=== PATIENT | female | born 1935 | race Caucasian/White ===

== ENCOUNTER 2019-09-23 22:47 | IRF | payer MEDICARE, SELFPAY ==
[2019-09-23 22:50] VITALS: BP 123/54; PULSE 62; RESP 20; TEMP 36.1; O2SAT 97; BMI 37.6
--- NOTE | 2019-09-23 22:59 | ADMGEN ---
This patient, Christian Mcghee, was admitted to [facility] Room 221-01 at 2250. Patient/family oriented to hospital policies and general routines including ID bracelet, bed and alarms, visiting hours, pain management, procedures, bathroom and other care routines, personal items, smoking policy, room service/diet, and visiting hours. Valuables list has been completed. Information on how to activate the Rapid Response Team has been discussed. Patient/Family are encouraged to report perceived risks to care and to ask questions if they do not understand what they are told or what they should do.
[2019-09-24 05:24] LABS: Basophils Absolute Auto 0.1 K/mm3 (0.0-0.1); Basophils Percent Auto 0.7 % (0.2-1.2); Eosinophils Absolute Auto 0.4 K/mm3 (0-0.3); Eosinophils Percent Auto 5.8 % (0-4.4); Hematocrit 39.6 % (37.0-47.0); Hemoglobin 12.6 g/dL (12.0-15.0); Immature Granulocyte Absolute 0.02 K/mm3 (0.00-0.031); Immature Granulocyte Percent A 0.3 % (0-0.5); Lymphocytes Absolute Auto 1.47 K/mm3 (0.9-3.2); Lymphocytes Percent Auto 20.2 % (18.3-44.2); Mean Corpuscular HGB Conc 31.8 g/dl (32-36); Mean Platelet Volume 9.6 fl (7.4-10.4); Monocytes Absolute Auto 0.8 K/mm3 (0.1-0.6); Monocytes Percent Auto 11.2 % (2.6-8.5); Neutrophils Absolute Auto 4.5 K/mm3 (1.3-6.7); Neutrophils Percent Auto 61.8 % (45.5-73.1); Platelet Count Result 254 k/mm3 (150-375); Red Blood Count 4.35 M/mm3 (4.2-5.4); Red Cell Distribution Width 14.9 % (11.5-14.5); White Blood Count 7.3 K/mm3 (4.5-10.0)
[2019-09-24 05:34] LABS: Blood Urea Nitrogen 10 mg/dL (7-17); Calcium 9.1 mg/dL (8.4-10.2); Carbon Dioxide 29 mmol/L (22-30); Chloride 103 mmol/L (98-107); Estimated Glomerular Filt Rate > 60; Glucose 100 mg/dL (65-105); Potassium 3.4 mmol/L (3.4-5.0); Sodium 137 mmol/L (137-145)
[2019-09-24 06:00] VITALS: BP 129/60; PULSE 72; RESP 18; TEMP 36.6; O2SAT 98
--- NOTE | 2019-09-24 09:38 | PCOTNOTE ---
Initiated OT evaluation, but unable to complete entirely as patient requires extended amount of time to complete self-care tasks. Will complete further this afternoon.
[2019-09-24] MEDS: ENOXAPARIN 40 MG/0.4 ML SYRINGE SUB-Q (09:45)
[2019-09-24] MEDS: ASPIRIN 81 MG ENTERIC TABLET PO (09:46)
[2019-09-24] MEDS: FAMOTIDINE 20 MG TABLET PO (09:46)
[2019-09-24] MEDS: CLOPIDOGREL BISULFATE 75 MG TABLET PO (09:46)
[2019-09-24] MEDS: LOSARTAN POTASSIUM 100 MG TABLET PO (09:46)
[2019-09-24] MEDS: AMLODIPINE BESYLATE 2.5 MG TABLET PO (09:46)
[2019-09-24 09:47] VITALS: PULSE 72
[2019-09-24] MEDS: METOPROLOL TARTRATE 25 MG TABLET PO ×2 (09:47→17:55)
[2019-09-24] MEDS: TOLNAFTATE 1% POWDER 45 GM BTL 1 APPLIC TOPICAL ×2 (09:47→17:55)
[2019-09-24 10:10] VITALS: BMI 37.6
--- NOTE | 2019-09-24 10:30 | WPDREHABHP ---
H&P: HPI History of Present Illness Chief complaint: CVA Narrative: Christian Mcghee is a 83 year old female HISTORY OF PRESENT ILLNESS: The patient's primary rehab impairment category is 0 1/stroke The etiologic diagnosis is acute infarct in the right ramírez radiata extending into the right putamen I saw this patient [id number] on September 24, 2019 at 10:00 a.m. The patient is a 83-year-old right-handed white woman with a past medical history of stroke, hyperlipidemia, chronic kidney disease, and hypertension who presented to [facility] on September 17, 2019 via EMS from [facility] complaining of left-sided weakness. The patient reported that the symptoms of weakness started 2 days prior to presentation. She noted that she is having trouble getting around and is unable to bear weight on the left leg. She also repeated falling 1 day prior to that with no loss of consciousness. Patient was seen in the emergency department [facility] on September 15, 2019 after a fall and was evaluated. There was no head injury or loss of consciousness. The patient was discharged on treated with antibiotics for a urinary tract infection. This visit CT of the head showed no evidence of an acute intracranial process. The laboratory daughter showed CK of 1445 and urinalysis was abnormal. She was admitted and Neurology was consulted. Carotid ultrasound showed no high-grade stenosis. Echocardiogram with an ejection fraction of 65 to 70% with no thrombosis or vegetation she was continued on aspirin Plavix and pravastatin. Brain MRI showed an acute infarct in the right ramírez radiata extending into the right putamen. She was started on ceftriaxone IV for her urinary tract infection and completed 6 days course of antibiotic therapy. She is continued on her antihypertensive for blood pressure control. She did pass a barium swallow study and is on mechanical soft low sodium diet with thin liquids. Physical examination continues to reveal left-sided hemiparesis impaired balance and decreased gross motor control she is awake alert will be treated time place and person and quite motivated to get better the patient is discharged to us on Lovenox for DVT prophylaxis. The patient has not traveled outside the [place] or had contact with someone who is ill that has traveled outside the use in the past 21 days. The patient has not traveled to an area of the [place] that is experiencing known transmission of the Coronavirus and has not had close personal contact with anyone that has. The patient does not have a fever. The patient does not have any lower respiratory or even upper respiratory symptoms. Therapy was initiated at the acute care facility and the patient transferred to us from [facility] on September 23, 2019 on FALLS OR SURGERIES: The patient has had no major surgeries in the 100 days prior to admission. They had falls in the past year. They had falls with injury in the past year. PAST MEDICAL HISTORY: chronic kidney disease stage 3, hypertension, hyperlipidemia, previous history of stroke. The present stroke superimposed on the previous history of stroke PAST SURGICAL HISTORY: cholecystectomy hysterectomy brain aneurysm repair. SOCIAL HISTORY: The patient lives in independent living at [facility]. She was independent prior with no assistive device. She was previously doing balance therapy with OS of therapy services on was able to get out of a chair without pushing on the arms of the chair. Patient's daughter reported that the patient is very active. There our service available should she need them upon discharge. The patient daughter has already been in contact with administration at [facility] and they were be setting up things when the no what she will need at the time of discharge from the acute rehab. The patient fell just prior to admission. No major surgeries in the past 100 days no
[2019-09-24 14:00] VITALS: BP 142/67; PULSE 66; RESP 17; TEMP 36.3; O2SAT 99
[2019-09-24 17:55] VITALS: PULSE 66
[2019-09-24] MEDS: ATORVASTATIN 40 MG TABLET PO (20:26)
[2019-09-24] MEDS: MELATONIN 3 MG TABLET PO (20:27)
[2019-09-24 22:00] VITALS: BP 140/66; PULSE 76; RESP 18; TEMP 36.8; O2SAT 96
[2019-09-25 06:00] VITALS: BP 128/47; PULSE 67; RESP 18; TEMP 37.1; O2SAT 98
[2019-09-25 08:00] VITALS: PULSE 64; RESP 18
[2019-09-25] MEDS: ENOXAPARIN 40 MG/0.4 ML SYRINGE SUB-Q (10:59)
[2019-09-25] MEDS: AMLODIPINE BESYLATE 2.5 MG TABLET PO (10:59)
[2019-09-25 11:00] VITALS: PULSE 70
[2019-09-25] MEDS: METOPROLOL TARTRATE 25 MG TABLET PO ×2 (11:00→18:00)
[2019-09-25] MEDS: MECLIZINE HCL 25 MG TABLET PO (11:00)
[2019-09-25] MEDS: ASPIRIN 81 MG ENTERIC TABLET PO (11:00)
[2019-09-25] MEDS: CLOPIDOGREL BISULFATE 75 MG TABLET PO (11:00)
[2019-09-25] MEDS: LOSARTAN POTASSIUM 100 MG TABLET PO (11:01)
[2019-09-25] MEDS: FAMOTIDINE 20 MG TABLET PO (11:01)
[2019-09-25] MEDS: TOLNAFTATE 1% POWDER 45 GM BTL 1 APPLIC TOPICAL ×2 (11:01→18:00)
--- NOTE | 2019-09-25 11:34 | RPD ---
INDIVIDUALIZED PLAN OF CARE FOR Christian Mcghee Brief Synthesis of Pre-Admission Screen, Post-Admission Evaluation and Therapy Evaluations: The patient presents to rehab with an acute infarct in the right ramírez radiata extending into the right putamen. Comorbidities include Left-sided weakness, hypertension, dyslipidemia, urinary tract infection, acute cystitis, traumatic rhabdomyolysis, acute left knee pain, impaired mobility, and hypocalcemia. The complexity of the patient's medical management, nursing, and therapy needs require an inpatient rehab hospital stay with a physician-led interdisciplinary team approach. The patient?s needs will be best met in an intensive program vs. at a lower level of care. The patient requires physician services for neurology services, medical oversight, and coordination of care. Emotional needs will be monitored as depression is a common sequelae of stroke. The patient needs physician monitoring and treatment of hypertension, urinary tract infection, monitoring for adverse reactions to new medications, monitoring of infection, left-sided hemiparesis, impaired balance, and decreased gross motor control and pain control. The patient requires nursing services for frequent neuro checks, anticoagulation therapy, medication management and education, pressure relief and skin care management, monitoring of labs, bowel and bladder training, and fall/safety precautions. Deficits include:ADLs, Balance, Endurance, Family Training/Education, Mobility, Pain Management, ROM, Safety, Strength, and Transfers. [employer] Architect/Case Management for: Discharge Planning and Patient/Family Counseling Physical Therapy: 5 days per week for 90 minutes. Treatments may include: Therapeutic Exercise, Gait Training, Neuromuscular Re-education, Transfer Training, Community Reintegration, Bed Mobility, Patient/Family Education, Wheelchair Mobility Group Therapy/Concurrent Therapy Rationales: -Improve attention span during functional activities in a distracted environment. -Enhance problem solving and/or adequate judgment skills during functional activities in a distracted environment. -Promote increased safety awareness in a distracted environment to reduce fall risk with functional tasks, transfers, and ambulation to allow a more safe, self-sufficient return to the home environment. -Improve dynamic balance skills to promote safety and independence with functional activities in a distracted environment for maximum gain. Occupational Therapy: 5 days per week for 90 minutes. Treatments may include: Therapeutic Exercise, Therapeutic Activity, Cognitive Training, Self-Care Transfer Training, Community Reintegration, Home Management, Patient/Family Education, Wheelchair Mobility Training, Energy Conservation Training Group Therapy/Concurrent Therapy Rationales: -Allow therapist to observe and teach generalization and carry-over of skills learned in individual therapy. -Enhance problem solving and sequencing skills during therapeutic activities in a distracted environment. -Promote increased safety awareness in a realistic setting to reduce fall risk with functional tasks due to visual and verbal distractions. -Increase functional level with ADLs, ADL transfers and use of adaptive equipment through therapeutic activities with others while promoting safety to allow a more safe, self-sufficient return home. Medical Prognosis: Good Anticipated Length of Stay: 10 days Rehab Goals: Eating Goal: 06-Independent Oral Hygiene Goal: 06-Independent Toileting Hygiene Goal: 04-Supervision or Touching Assistance Shower/Bathe Self Goal: 04-Supervision or Touching Assistance Upper Body Dressing Goal: 04-Supervision or Touching Assistance Lower Body Dressing Goal: 04-Supervision or Touching Assistance Putting On/Taking Off Footwear Goal: 04-Supervision or Touching Assistance Rolling Left and Right Goal: 06-Independent Sit to Lying Goal: 06-Independent Lying to Sitting on Side
[2019-09-25 14:00] VITALS: BP 138/51; PULSE 63; RESP 19; TEMP 37; O2SAT 96
--- NOTE | 2019-09-25 15:20 | WPDNEURORHBP ---
Subjective Date/time seen: 09/25/19 15:20 Interval history: this 83-year-old woman is here after having had stroke with right cerebral hemisphere with left-sided moderately severe hemiparesis she is doing well denies any headache nausea vomiting chest pain shortness of breath fever chills or sore throat Review of Systems Review of Systems: All systems reviewed & are unremarkable except as noted in HPI and below Functional Status Ambulation Ability Ability to Ambulate 10 Feet: Moderate Assistance X 1 Ambulation Assistive Devices: Walker, Wheeled Transfers Ability Ability to Transfer In/Out of Chair: Minimum Assistance X 1 Exam Const: General: comfortable and no acute distress HENMT: General nose exam: Normal nares present Mouth: Yes moist mucous membranes Eyes: General: appearance normal, both eyes and all related structures Neck: Neck: supple and no JVD Resp: Effort & Inspection: normal respiratory effort Auscultation: clear to auscultation bilaterally Cardio: Rate: regular rate Rhythm: regular rhythm GI: GI Palp: Yes Soft to palpation Auscultation: normal bowel sounds Skin: General skin exam: normal color and no rashes or lesions noted Neuro: Other: the patient is awake alert well oriented follows commands not any distress the deficit on the left side is stable is too early to say how much is going to improve Extrem: General: normal to inspection Psych: Mental Status: mental status grossly normal Objective Data Vital Signs Vital Signs: Vital Signs - 24 hr 09/24/19 17:55 09/24/19 22:00 09/25/19 06:00 Temperature 36.8 C 37.1 C Pulse Rate 66 76 67 Respiratory Rate 18 18 Blood Pressure 140/66 128/47 L Pulse Oximetry 96 98 09/25/19 11:00 Temperature Pulse Rate 70 Respiratory Rate Blood Pressure Pulse Oximetry Intake/Output Intake/Output: Intake & Output 09/22/19 09/23/19 09/24/19 09/25/19 23:59 23:59 23:59 23:59 Intake Total 840 480 Balance 840 480 Meds/Results Medications: Active Medications Generic Name Dose Route Start Last Admin Trade Name Freq PRN Reason Stop Dose Admin Acetaminophen 650 mg 09/24/19 04:08 Tylenol Tablet PO Q6H PRN Pain (Scale Score 1-3) Amlodipine Besylate 2.5 mg 09/24/19 09:00 09/25/19 10:59 Norvasc PO 2.5 mg DAILY DAO Administration Aspirin 81 mg 09/24/19 09:00 09/25/19 11:00 Aspirin Ec PO 81 mg DAILY DAO Administration Atorvastatin Calcium 40 mg 09/24/19 21:00 09/24/19 20:26 Lipitor PO 40 mg HS DAO Administration Clopidogrel Bisulfate 75 mg 09/24/19 09:00 09/25/19 11:00 Plavix PO 75 mg DAILY DAO Administration Enoxaparin Sodium 40 mg 09/24/19 09:00 09/25/19 10:59 Lovenox SUB-Q 40 mg DAILY DAO Administration Famotidine 20 mg 09/24/19 09:00 09/25/19 11:01 Pepcid PO 20 mg DAILY DAO Administration Hydrocortisone 1 applic 09/24/19 09:00 09/25/19 11:01 Proctocream-Hc 2.5% TOPICAL 1 applic BID DAO Administration Losartan Potassium 100 mg 09/24/19 09:00 09/25/19 11:01 Cozaar PO 100 mg DAILY DAO Administration Meclizine HCl 25 mg 09/24/19 04:08 09/25/19 11:00 Antivert PO 25 mg TID PRN Administration Dizziness Or Vertigo Melatonin 3 mg 09/24/19 21:00 09/24/19 20:27 Melatonin PO 3 mg HS DAO Administration Metoprolol Tartrate 25 mg 09/24/19 09:00 09/25/19 11:00 Lopressor PO 25 mg BID DAO Administration Ondansetron HCl 4 mg 09/24/19 04:08 Zofran Odt PO Q6H PRN Nausea And Vomiting Tolnaftate 1 applic 09/24/19 09:00 09/25/19 11:01 Tolnaftate 1% Powder TOPICAL 1 applic BID DAO Administration Progress Note: A&P Assessment and Plan (1) Hypertension: Code(s): I10 - Essential (primary) hypertension Status: Acute (2) Chronic kidney disease, stage 3: Code(s): N18.3 - Chronic kidney disease, stage 3 (moderate) Status: Acute (3) Left he
[2019-09-25 18:00] VITALS: PULSE 63
[2019-09-25] MEDS: MELATONIN 3 MG TABLET PO (20:08)
[2019-09-25] MEDS: ATORVASTATIN 40 MG TABLET PO (20:08)
[2019-09-25 22:00] VITALS: BP 131/93; PULSE 66; RESP 20; TEMP 36.5; O2SAT 95
[2019-09-26 06:00] VITALS: BP 148/47; PULSE 61; RESP 20; TEMP 37.3; O2SAT 98
[2019-09-26] MEDS: AMLODIPINE BESYLATE 2.5 MG TABLET PO (09:36)
[2019-09-26 09:37] VITALS: PULSE 61
[2019-09-26] MEDS: TOLNAFTATE 1% POWDER 45 GM BTL 1 APPLIC TOPICAL ×2 (09:37→17:58)
[2019-09-26] MEDS: LOSARTAN POTASSIUM 100 MG TABLET PO (09:37)
[2019-09-26] MEDS: ENOXAPARIN 40 MG/0.4 ML SYRINGE SUB-Q (09:37)
[2019-09-26] MEDS: CLOPIDOGREL BISULFATE 75 MG TABLET PO (09:37)
[2019-09-26] MEDS: METOPROLOL TARTRATE 25 MG TABLET PO ×2 (09:37→17:58)
[2019-09-26] MEDS: ASPIRIN 81 MG ENTERIC TABLET PO (09:37)
[2019-09-26] MEDS: FAMOTIDINE 20 MG TABLET PO (09:37)
--- NOTE | 2019-09-26 11:54 | WPDNEURORHBP ---
Subjective Date/time seen: Left /23/20 11:54 Review of Systems Review of Systems: All systems reviewed & are unremarkable except as noted in HPI and below Functional Status Ambulation Ability Ability to Ambulate 10 Feet: Minimum Assistance X 1 Ambulation Assistive Devices: Walker, Wheeled Transfers Ability Ability to Transfer In/Out of Chair: Minimum Assistance X 1 Exam Const: General: comfortable and no acute distress HENMT: Head: normal to inspection General nose exam: No nasal discharge present Mouth: Yes Normal oral and palatal mucosa present Eyes: General: appearance normal, both eyes and all related structures Neck: Neck: full ROM Resp: Effort & Inspection: normal respiratory effort Auscultation: clear to auscultation bilaterally Cardio: Rate: regular rate Rhythm: regular rhythm GI: Auscultation: normal bowel sounds Skin: General skin exam: no rashes or lesions noted Neuro: General: patient oriented x3 Cognition (Neuro): normal cognition Motor exam (neuro): Abnormal motor strength present (left hemiparesis) Extrem: General: normal to inspection Psych: Appearance: grossly normal Objective Data Vital Signs Vital Signs: Vital Signs - 24 hr 09/25/19 14:00 09/25/19 18:00 09/25/19 22:00 Temperature 37.0 C 36.5 C Pulse Rate 63 63 66 Respiratory Rate 19 20 Blood Pressure 138/51 L 131/93 H Pulse Oximetry 96 95 09/26/19 06:00 09/26/19 09:37 Temperature 37.3 C Pulse Rate 61 61 Respiratory Rate 20 Blood Pressure 148/47 H Pulse Oximetry 98 Intake/Output Intake/Output: Intake & Output 09/23/19 09/24/19 09/25/19 09/26/19 23:59 23:59 23:59 23:59 Intake Total 840 720 240 Balance 840 720 240 Meds/Results Medications: Active Medications Generic Name Dose Route Start Last Admin Trade Name Freq PRN Reason Stop Dose Admin Acetaminophen 650 mg 09/24/19 04:08 Tylenol Tablet PO Q6H PRN Pain (Scale Score 1-3) Amlodipine Besylate 2.5 mg 09/24/19 09:00 09/26/19 09:36 Norvasc PO 2.5 mg DAILY DAO Administration Aspirin 81 mg 09/24/19 09:00 09/26/19 09:37 Aspirin Ec PO 81 mg DAILY DAO Administration Atorvastatin Calcium 40 mg 09/24/19 21:00 09/25/19 20:08 Lipitor PO 40 mg HS DAO Administration Clopidogrel Bisulfate 75 mg 09/24/19 09:00 09/26/19 09:37 Plavix PO 75 mg DAILY DAO Administration Enoxaparin Sodium 40 mg 09/24/19 09:00 09/26/19 09:37 Lovenox SUB-Q 40 mg DAILY DAO Administration Famotidine 20 mg 09/24/19 09:00 09/26/19 09:37 Pepcid PO 20 mg DAILY DAO Administration Hydrocortisone 1 applic 09/24/19 09:00 09/26/19 09:37 Proctocream-Hc 2.5% TOPICAL 1 applic BID DAO Administration Losartan Potassium 100 mg 09/24/19 09:00 09/26/19 09:37 Cozaar PO 100 mg DAILY DAO Administration Meclizine HCl 25 mg 09/24/19 04:08 09/25/19 11:00 Antivert PO 25 mg TID PRN Administration Dizziness Or Vertigo Melatonin 3 mg 09/24/19 21:00 09/25/19 20:08 Melatonin PO 3 mg HS DAO Administration Metoprolol Tartrate 25 mg 09/24/19 09:00 09/26/19 09:37 Lopressor PO 25 mg BID DAO Administration Ondansetron HCl 4 mg 09/24/19 04:08 Zofran Odt PO Q6H PRN Nausea And Vomiting Tolnaftate 1 applic 09/24/19 09:00 09/26/19 09:37 Tolnaftate 1% Powder TOPICAL 1 applic BID DAO Administration Progress Note: A&P Assessment and Plan (1) Hypertension: Code(s): I10 - Essential (primary) hypertension Status: Acute (2) Chronic kidney disease, stage 3: Code(s): N18.3 - Chronic kidney disease, stage 3 (moderate) Status: Acute (3) Left hemiparesis: Code(s): G81.94 - Hemiplegia, unspecified affecting left nondominant side Status: Acute (4) Right-sided lacunar stroke: Code(s): I63.81 - Other cerebral infarction due to occlusion or stenosis of small artery Status:
[2019-09-26 14:00] VITALS: BP 141/58; PULSE 64; RESP 16; TEMP 36.6; O2SAT 98
[2019-09-26 17:58] VITALS: PULSE 64
[2019-09-26] MEDS: ATORVASTATIN 40 MG TABLET PO (20:14)
[2019-09-26] MEDS: MELATONIN 3 MG TABLET PO (20:14)
[2019-09-26 21:29] VITALS: BP 151/62; PULSE 65; RESP 18; TEMP 36.3; O2SAT 97
[2019-09-27 06:00] VITALS: BP 117/51; PULSE 64; RESP 18; TEMP 36.6; O2SAT 98
[2019-09-27 08:00] VITALS: PULSE 64; RESP 18; O2SAT 98
[2019-09-27] MEDS: FAMOTIDINE 20 MG TABLET PO (09:34)
[2019-09-27] MEDS: ASPIRIN 81 MG ENTERIC TABLET PO (09:34)
[2019-09-27] MEDS: ENOXAPARIN 40 MG/0.4 ML SYRINGE SUB-Q (09:34)
[2019-09-27 09:35] VITALS: PULSE 64
[2019-09-27] MEDS: AMLODIPINE BESYLATE 2.5 MG TABLET PO (09:35)
[2019-09-27] MEDS: METOPROLOL TARTRATE 25 MG TABLET PO ×2 (09:35→17:12)
[2019-09-27] MEDS: CLOPIDOGREL BISULFATE 75 MG TABLET PO (09:35)
[2019-09-27] MEDS: LOSARTAN POTASSIUM 100 MG TABLET PO (09:35)
[2019-09-27] MEDS: TOLNAFTATE 1% POWDER 45 GM BTL 1 APPLIC TOPICAL (09:36)
[2019-09-27 14:00] VITALS: BP 139/58; PULSE 61; RESP 16; TEMP 36.5; O2SAT 97
--- NOTE | 2019-09-27 15:31 | PC.NURSE ---
Patient keeps moving around in room in her chair. Chair alarm in place. I have told patient numerous times today to SCOOT BACK in her wheelchair. Patient likes to sit close to the edge of the chair. Will continue to monitor. Call light within reach.
[2019-09-27 17:12] VITALS: PULSE 61
[2019-09-27] MEDS: MELATONIN 3 MG TABLET PO (20:27)
[2019-09-27] MEDS: ATORVASTATIN 40 MG TABLET PO (20:27)
[2019-09-27 21:24] VITALS: BP 147/71; PULSE 64; RESP 20; TEMP 36.4; O2SAT 97
[2019-09-28] MEDS: ACETAMINOPHEN 325 MG TABLET 650 MG PO (03:51)
[2019-09-28 06:00] VITALS: BP 146/63; PULSE 63; RESP 20; TEMP 36.2; O2SAT 94
[2019-09-28 08:57] VITALS: PULSE 63
[2019-09-28] MEDS: AMLODIPINE BESYLATE 2.5 MG TABLET PO (08:57)
[2019-09-28] MEDS: METOPROLOL TARTRATE 25 MG TABLET PO ×2 (08:57→18:13)
[2019-09-28] MEDS: ENOXAPARIN 40 MG/0.4 ML SYRINGE SUB-Q (08:57)
[2019-09-28] MEDS: LOSARTAN POTASSIUM 100 MG TABLET PO (08:57)
[2019-09-28] MEDS: CLOPIDOGREL BISULFATE 75 MG TABLET PO (08:57)
[2019-09-28] MEDS: ASPIRIN 81 MG ENTERIC TABLET PO (08:57)
[2019-09-28] MEDS: FAMOTIDINE 20 MG TABLET PO (08:57)
[2019-09-28] MEDS: TOLNAFTATE 1% POWDER 45 GM BTL 1 APPLIC TOPICAL ×2 (08:58→18:13)
[2019-09-28 14:00] VITALS: BP 152/67; PULSE 64; RESP 16; TEMP 36.3; O2SAT 97
--- NOTE | 2019-09-28 15:54 | WPDNEURORHBP ---
Subjective Date/time seen: S/p Left hemiparesis with right putamen andcorona radiata infarct and chronic renal disease and [id number]/20 15:54 Review of Systems Review of Systems: All systems reviewed & are unremarkable except as noted in HPI and below Functional Status Ambulation Ability Ability to Ambulate 10 Feet: Minimum Assistance X 1 Ability to Ambulate 50 Feet With 2 Turns: Minimum Assistance X 1 Ambulation Assistive Devices: Walker, Wheeled Transfers Ability Ability to Transfer In/Out of Chair: Minimum Assistance X 1 Exam Const: General: cooperative, healthy appearing, comfortable, no acute distress and alert HENMT: Head: normal to inspection Eyes: General: appearance normal, both eyes and all related structures Neck: Neck: full ROM and no lymphadenopathy Thyroid: thyroid normal Carotids: normal carotid upstroke Resp: Effort & Inspection: normal respiratory effort Auscultation: clear to auscultation bilaterally Cardio: Rate: regular rate Rhythm: regular rhythm GI: Auscultation: normal bowel sounds Skin: General skin exam: no rashes or lesions noted Neuro: General: patient oriented x3, moves all extremities and no meningeal signs Cranial nerves: Yes Equal, round and reactive pupils present, Yes Bilaterally intact EOM present, Yes Nystagmus not present, Yes Midline tongue present, Yes Ability to bilaterally rotate head present and Yes Ability to bilaterally elevate shoulders present Cognition (Neuro): normal cognition Speech: normal speech Motor exam (neuro): Abnormal motor strength present (left hemiparesis) Deep tendon reflexes (DTR's): Right triceps reflex intensity grade: 1+, Left triceps reflex intensity grade: 2+, Rt Biceps (C5, C6): 1+, Left biceps reflex intensity grade: 2+, Right brachioradialis reflex intensity grade: 1+, Left brachioradialis reflex intensity grade: 2+, Right patellar reflex intensity grade: 1+, Left patellar reflex intensity grade: 2+, Right ankle reflex intensity grade: 1+ and Left ankle reflex intensity grade: 2+ Plantar Reflex Responses: downgoing: right and upgoing (positive Babinski): left Extrem: General: normal to inspection Psych: Appearance: grossly normal Objective Data Vital Signs Vital Signs: Vital Signs - 24 hr 09/27/19 17:12 09/27/19 21:24 09/28/19 06:00 Temperature 36.4 C L 36.2 C L Pulse Rate 61 64 63 Respiratory Rate 20 20 Blood Pressure 147/71 H 146/63 H Pulse Oximetry 97 94 09/28/19 08:57 09/28/19 14:00 Temperature 36.3 C L Pulse Rate 63 64 Respiratory Rate 16 Blood Pressure 152/67 H Pulse Oximetry 97 Intake/Output Intake/Output: Intake & Output 09/25/19 09/26/19 09/27/19 09/28/19 23:59 23:59 23:59 23:59 Intake Total 720 640 720 420 Balance 720 640 720 420 Meds/Results Medications: Active Medications Generic Name Dose Route Start Last Admin Trade Name Freq PRN Reason Stop Dose Admin Acetaminophen 650 mg 09/24/19 04:08 09/28/19 03:51 Tylenol Tablet PO 650 mg Q6H PRN Administration Pain (Scale Score 1-3) Amlodipine Besylate 2.5 mg 09/24/19 09:00 09/28/19 08:57 Norvasc PO 2.5 mg DAILY DAO Administration Aspirin 81 mg 09/24/19 09:00 09/28/19 08:57 Aspirin Ec PO 81 mg DAILY DAO Administration Atorvastatin Calcium 40 mg 09/24/19 21:00 09/27/19 20:27 Lipitor PO 40 mg HS DAO Administration Clopidogrel Bisulfate 75 mg 09/24/19 09:00 09/28/19 08:57 Plavix PO 75 mg DAILY DAO Administration Enoxaparin Sodium 40 mg 09/24/19 09:00 09/28/19 08:57 Lovenox SUB-Q 40 mg DAILY DAO Administration Famotidine 20 mg 09/24/19 09:00 09/28/19 08:57 Pepcid PO 20 mg DAILY DAO Administration Hydrocortisone 1 applic 09/24/19 09:00 09/28/19 08:57 Proctocream-Hc 2.5% TOPICAL 1 applic BID DAO Administration Losartan Potassium 100 mg 09/24/19 09:00 09/28/19 08:57 Cozaar PO 100 mg DAILY DAO Administration Meclizine HCl 25 mg
[2019-09-28 18:13] VITALS: PULSE 64
[2019-09-28] MEDS: ATORVASTATIN 40 MG TABLET PO (20:55)
[2019-09-28] MEDS: MELATONIN 3 MG TABLET 6 MG PO (20:56)
[2019-09-28 22:00] VITALS: BP 126/44; PULSE 67; RESP 18; TEMP 36.7; O2SAT 99
[2019-09-29 06:00] VITALS: BP 125/47; PULSE 79; RESP 18; TEMP 36.7; O2SAT 97
[2019-09-29] MEDS: ENOXAPARIN 40 MG/0.4 ML SYRINGE SUB-Q (10:04)
[2019-09-29] MEDS: CLOPIDOGREL BISULFATE 75 MG TABLET PO (10:05)
[2019-09-29] MEDS: AMLODIPINE BESYLATE 2.5 MG TABLET PO (10:05)
[2019-09-29] MEDS: FAMOTIDINE 20 MG TABLET PO (10:05)
[2019-09-29] MEDS: ASPIRIN 81 MG ENTERIC TABLET PO (10:05)
[2019-09-29 10:06] VITALS: PULSE 79
[2019-09-29] MEDS: METOPROLOL TARTRATE 25 MG TABLET PO ×2 (10:06→17:37)
[2019-09-29] MEDS: LOSARTAN POTASSIUM 100 MG TABLET PO (10:06)
[2019-09-29] MEDS: TOLNAFTATE 1% POWDER 45 GM BTL 1 APPLIC TOPICAL ×2 (10:06→17:37)
--- NOTE | 2019-09-29 12:05 | PCDIET ---
Nutrition Follow-Up Complete: No nutrition diagnosis at this time. Nutrition Goal: Patient to consume 75% of meals or greater. Goal not met. Average intake from 09/25/19 has been 65% of meals. Patient agreeable to try [employer]rive Ice Cream (270kcal, 9g protein) which is being recommended twice daily. Diet was just upgraded to soft and bite size, heart healthy, which patient is pleased about. Last recorded weight is 84.5 kg. Recommend obtaining new weight. Bowel Motility: Last documented BM on 09/25/19. Labs Reviewed: No new labs available. Meds Noted: Pepcid Additional Notes: No documented skin breakdown. Will continue to monitor with same goals. Nutrition Monitoring and Evaluation: Follow up every 5 days.
--- NOTE | 2019-09-29 13:23 | WPDNEURORHBP ---
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 however she is doing fairly well her insomnia is an issue and she says that she has been taking melatonin at home 8 milligram we will increase that otherwise she denies any headache nausea vomiting chest pain or shortness of breath the nursing mentions about the poor appetite and her diet issues which we will address accordingly and the dietitian will be talking with her Review of Systems Review of Systems: All systems reviewed & are unremarkable except as noted in HPI and below Functional Status Ambulation Ability Ability to Ambulate 10 Feet: Minimum Assistance X 1 Ability to Ambulate 50 Feet With 2 Turns: Minimum Assistance X 1 Ambulation Assistive Devices: Walker, Wheeled Transfers Ability Ability to Transfer In/Out of Chair: Minimum Assistance X 1 Exam Const: General: comfortable and no acute distress HENMT: General nose exam: Normal nares present Mouth: Yes moist mucous membranes Eyes: General: appearance normal, both eyes and all related structures Neck: Neck: supple and no JVD Resp: Effort & Inspection: normal respiratory effort Auscultation: clear to auscultation bilaterally Cardio: Rate: regular rate Rhythm: regular rhythm GI: GI Palp: Yes Soft to palpation Auscultation: normal bowel sounds Skin: General skin exam: normal color and no rashes or lesions noted Neuro: Other: patient is awake and alert well oriented has a left-sided hemiparesis which is moderately severe but she still trying to walk up to 40 feet overall is to be picture is improved Extrem: General: normal to inspection Psych: Mental Status: mental status grossly normal Objective Data Vital Signs Vital Signs: Vital Signs - 24 hr 09/28/19 14:00 09/28/19 18:13 09/28/19 22:00 Temperature 36.3 C L 36.7 C Pulse Rate 64 64 67 Respiratory Rate 16 18 Blood Pressure 152/67 H 126/44 L Pulse Oximetry 97 99 09/29/19 06:00 09/29/19 10:06 Temperature 36.7 C Pulse Rate 79 79 Respiratory Rate 18 Blood Pressure 125/47 L Pulse Oximetry 97 Intake/Output Intake/Output: Intake & Output 09/26/19 09/27/19 09/28/19 09/29/19 23:59 23:59 23:59 23:59 Intake Total 640 720 660 240 Balance 640 720 660 240 Meds/Results Medications: Active Medications Generic Name Dose Route Start Last Admin Trade Name Freq PRN Reason Stop Dose Admin Acetaminophen 650 mg 09/24/19 04:08 09/28/19 03:51 Tylenol Tablet PO 650 mg Q6H PRN Administration Pain (Scale Score 1-3) Amlodipine Besylate 2.5 mg 09/24/19 09:00 09/29/19 10:05 Norvasc PO 2.5 mg DAILY DAO Administration Aspirin 81 mg 09/24/19 09:00 09/29/19 10:05 Aspirin Ec PO 81 mg DAILY DAO Administration Atorvastatin Calcium 40 mg 09/24/19 21:00 09/28/19 20:55 Lipitor PO 40 mg HS DAO Administration Clopidogrel Bisulfate 75 mg 09/24/19 09:00 09/29/19 10:05 Plavix PO 75 mg DAILY DAO Administration Enoxaparin Sodium 40 mg 09/24/19 09:00 09/29/19 10:04 Lovenox SUB-Q 40 mg DAILY DAO Administration Famotidine 20 mg 09/24/19 09:00 09/29/19 10:05 Pepcid PO 20 mg DAILY DAO Administration Hydrocortisone 1 applic 09/24/19 09:00 09/29/19 10:05 Proctocream-Hc 2.5% TOPICAL 1 applic BID DAO Administration Losartan Potassium 100 mg 09/24/19 09:00 09/29/19 10:06 Cozaar PO 100 mg DAILY DAO Administration Meclizine HCl 25 mg 09/24/19 04:08 09/25/19 11:00 Antivert PO 25 mg TID PRN Administration Dizziness Or Vertigo Melatonin 3 mg 09/29/19 08:50 Melatonin PO HS DAO Melatonin 5 mg 09/29/19 21:00 Melatonin PO HS DAO Metoprolol Tartrate 25 mg 09/24/19 09:00 09/29/19 10:06 Lopressor PO 25 mg BID DAO Administration Ondansetron HCl 4 mg 09/24/19 04:08 Zofran Odt PO Q6H
[2019-09-29 14:00] VITALS: BP 133/50; PULSE 63; RESP 18; TEMP 35.8; O2SAT 97
[2019-09-29 17:37] VITALS: PULSE 63
[2019-09-29] MEDS: MELATONIN 3 MG TABLET PO (20:40)
[2019-09-29] MEDS: ATORVASTATIN 40 MG TABLET PO (20:40)
[2019-09-29] MEDS: MELATONIN 5 MG TABLET PO (20:41)
[2019-09-29 21:59] VITALS: BP 134/60; PULSE 66; RESP 16; TEMP 36.7; O2SAT 99
[2019-09-30 06:00] VITALS: BP 140/50; PULSE 66; RESP 16; TEMP 36; O2SAT 93
--- NOTE | 2019-09-30 07:24 | PCPTNOTE ---
Christian Mcghee was evaluated for a wheeled walker on 09/30/2019 by this physical therapist. The wheeled walker will resolve patient's mobility limitations and will be used for ADL's within the home. The patient can safely use the wheeled walker. ?The wheeled walker will resolve the patient?s mobility deficits, including impaired strength, impaired balance, and impaired functional activity tolerance. Marcia Baker, PT, DPT
[2019-09-30 08:00] VITALS: PULSE 68; RESP 18; O2SAT 100
--- NOTE | 2019-09-30 09:06 | PCPTNOTE ---
Rajwinder Scott PTA completed an inpatient rehab wheelchair evaluation on Christian Mcghee on 09/30/2019. The patient is unable to safely and independently ambulate household distances due to their current impairments. Their diagnosis is CVA and their impairments include decreased strength, decreased endurance, decreased range of motion, decreased balance and lower extremity weakness. Christian's weight bearing status is weight-bearing as tolerated on the bilateral lower legs. The patient demonstrates significant functional mobility limitations that impair their ability to participate in mobility-related activities of daily living (MRADLs), including toileting, feeding, dressing, grooming, and bathing in the customary locations in the home. These limitations cannot be sufficiently resolved by the use of an appropriately fitted cane or walker. It is recommended that the patient utilize a wheelchair for functional mobility within the home in order to facilitate optimal safety, independence and participation in all MRADL's and adequately access their home environment on a regular basis. The patient's home provides adequate access between rooms, maneuvering space, and surfaces to accommodate the recommended wheelchair. The use of a wheelchair for functional mobility is strongly recommended and the patient is receptive to using the wheelchair. The use of this wheelchair will significantly improve the patient's ability to participate in MRADLS and the patient will use it on a regular basis in the home. This will facilitate optimal safety, independence, and participation. The patient has demonstrated sufficient physical and mental capabilities needed to safely propel a manual wheelchair that is provided in the home during a typical day. Recommended Wheelchair Frame: standard Recommended Wheelchair Size: 18x18 Recommended Wheelchair Cushion:standard Wheelchair Leg Recommendations: bilateral elevating leg rests - Elevating legrests are recommended because the patient has significant edema of the lower extremities that requires an elevating legrest. - Anti-tippers are recommended due to patient demonstrating increased risk for falls. They would benefit from anti-tippers with added safety and stabilization. Rajwinder Honeycuttamanda ADAME Evaluating Therapist Date I agree with and certify that the above recommendation is medically necessary. Referring Physician Date I agree with and certify that the above recommendation is medically necessary. Referring Physician Date
[2019-09-30 10:10] VITALS: PULSE 66
[2019-09-30] MEDS: ASPIRIN 81 MG ENTERIC TABLET PO (10:10)
[2019-09-30] MEDS: METOPROLOL TARTRATE 25 MG TABLET PO ×2 (10:10→18:03)
[2019-09-30] MEDS: FAMOTIDINE 20 MG TABLET PO (10:10)
[2019-09-30] MEDS: CLOPIDOGREL BISULFATE 75 MG TABLET PO (10:10)
[2019-09-30] MEDS: LOSARTAN POTASSIUM 100 MG TABLET PO (10:11)
[2019-09-30] MEDS: TOLNAFTATE 1% POWDER 45 GM BTL 1 APPLIC TOPICAL ×2 (10:11→18:03)
[2019-09-30] MEDS: AMLODIPINE BESYLATE 2.5 MG TABLET PO (10:11)
[2019-09-30] MEDS: ENOXAPARIN 40 MG/0.4 ML SYRINGE SUB-Q (10:11)
--- NOTE | 2019-09-30 12:05 | WPDNEURORHBP ---
Subjective Date/time seen: 09/30/19 12:05 Interval history: this pleasant 83-year-old is recuperating from the stroke she is quite alert her left hemiparesis is quite dense but she is quite motivated and engage in therapy denies any headache nausea vomiting chest pain shortness of breath fever chills or sore throat Review of Systems Review of Systems: All systems reviewed & are unremarkable except as noted in HPI and below Functional Status Ambulation Ability Ability to Ambulate 10 Feet: Minimum Assistance X 1 Ability to Ambulate 50 Feet With 2 Turns: Minimum Assistance X 1 Ambulation Assistive Devices: Walker, Wheeled Transfers Ability Ability to Transfer In/Out of Chair: Minimum Assistance X 1 Exam Const: General: comfortable and no acute distress HENMT: General nose exam: Normal nares present Mouth: Yes moist mucous membranes Eyes: General: appearance normal, both eyes and all related structures Neck: Neck: supple and no JVD Resp: Effort & Inspection: normal respiratory effort Auscultation: clear to auscultation bilaterally Cardio: Rate: regular rate Rhythm: regular rhythm GI: GI Palp: Yes Soft to palpation Auscultation: normal bowel sounds Skin: General skin exam: normal color and no rashes or lesions noted Neuro: Other: patient is awake alert will oriented and left-sided neglect left-sided moderately severe hemiparesis needing assistance in all the activities of daily living Extrem: General: normal to inspection Psych: Mental Status: mental status grossly normal Objective Data Vital Signs Vital Signs: Vital Signs - 24 hr 09/29/19 14:00 09/29/19 17:37 09/29/19 21:59 Temperature 35.8 C L 36.7 C Pulse Rate 63 63 66 Respiratory Rate 18 16 Blood Pressure 133/50 L 134/60 Pulse Oximetry 97 99 09/30/19 06:00 09/30/19 10:10 Temperature 36.0 C L Pulse Rate 66 66 Respiratory Rate 16 Blood Pressure 140/50 L Pulse Oximetry 93 Intake/Output Intake/Output: Intake & Output 09/27/19 09/28/19 09/29/19 09/30/19 23:59 23:59 23:59 23:59 Intake Total 720 660 720 240 Balance 720 660 720 240 Meds/Results Medications: Active Medications Generic Name Dose Route Start Last Admin Trade Name Freq PRN Reason Stop Dose Admin Acetaminophen 650 mg 09/24/19 04:08 09/28/19 03:51 Tylenol Tablet PO 650 mg Q6H PRN Administration Pain (Scale Score 1-3) Amlodipine Besylate 2.5 mg 09/24/19 09:00 09/30/19 10:11 Norvasc PO 2.5 mg DAILY DAO Administration Aspirin 81 mg 09/24/19 09:00 09/30/19 10:10 Aspirin Ec PO 81 mg DAILY DAO Administration Atorvastatin Calcium 40 mg 09/24/19 21:00 09/29/19 20:40 Lipitor PO 40 mg HS DAO Administration Clopidogrel Bisulfate 75 mg 09/24/19 09:00 09/30/19 10:10 Plavix PO 75 mg DAILY DAO Administration Enoxaparin Sodium 40 mg 09/24/19 09:00 09/30/19 10:11 Lovenox SUB-Q 40 mg DAILY DAO Administration Famotidine 20 mg 09/24/19 09:00 09/30/19 10:10 Pepcid PO 20 mg DAILY DAO Administration Hydrocortisone 1 applic 09/24/19 09:00 09/30/19 10:11 Proctocream-Hc 2.5% TOPICAL 1 applic BID DAO Administration Losartan Potassium 100 mg 09/24/19 09:00 09/30/19 10:11 Cozaar PO 100 mg DAILY DAO Administration Meclizine HCl 25 mg 09/24/19 04:08 09/25/19 11:00 Antivert PO 25 mg TID PRN Administration Dizziness Or Vertigo Melatonin 3 mg 09/29/19 08:50 09/29/19 20:40 Melatonin PO 3 mg HS DAO Administration Melatonin 5 mg 09/29/19 21:00 09/29/19 20:41 Melatonin PO 5 mg HS DAO Administration Metoprolol Tartrate 25 mg 09/24/19 09:00 09/30/19 10:10 Lopressor PO 25 mg BID DAO Administration Ondansetron HCl 4 mg 09/24/19 04:08 Zofran Odt PO Q6H PRN Nausea And Vomiting Tolnaftate 1 applic 09/24/19 09:00 09/30/19 10:11 Tolnaftate 1% Powder TOPICAL 1 applic BID DAO Administration Progress No
[2019-09-30 14:00] VITALS: BP 129/48; PULSE 61; RESP 18; TEMP 36.8; O2SAT 100
[2019-09-30 18:03] VITALS: PULSE 64
[2019-09-30] MEDS: MELATONIN 3 MG TABLET PO (20:26)
[2019-09-30] MEDS: ATORVASTATIN 40 MG TABLET PO (20:26)
[2019-09-30] MEDS: MELATONIN 5 MG TABLET PO (20:26)
[2019-09-30 22:00] VITALS: BP 136/60; PULSE 64; RESP 16; TEMP 36.8; O2SAT 96
[2019-10-01] VITALS (8 sets, daily range): BP systolic 126–141; BP diastolic 43–54; PULSE 58–70; RESP 16–18; TEMP 36.4–36.6; O2SAT 96–99
[2019-10-01 05:24] LABS: Basophils Percent Auto 0.5 % (0.2-1.2); Eosinophils Absolute Auto 0.5 K/mm3 (0-0.3); Eosinophils Percent Auto 5.2 % (0-4.4); Hematocrit 37.9 % (37.0-47.0); Immature Granulocyte Absolute 0.02 K/mm3 (0.00-0.031); Immature Granulocyte Percent A 0.2 % (0-0.5); Lymphocytes Absolute Auto 1.72 K/mm3 (0.9-3.2); Lymphocytes Percent Auto 19.6 % (18.3-44.2); Mean Corpuscular HGB Conc 31.7 g/dl (32-36); Mean Corpuscular Hemoglobin 28.9 pg (26-34); Mean Corpuscular Volume 91.3 fl (80-100); Mean Platelet Volume 10.4 fl (7.4-10.4); Monocytes Absolute Auto 1.1 K/mm3 (0.1-0.6); Neutrophils Absolute Auto 5.5 K/mm3 (1.3-6.7); Neutrophils Percent Auto 62.5 % (45.5-73.1); Platelet Count Result 270 k/mm3 (150-375); Red Blood Count 4.15 M/mm3 (4.2-5.4); Red Cell Distribution Width 14.7 % (11.5-14.5); White Blood Count 8.8 K/mm3 (4.5-10.0)
[2019-10-01 05:38] LABS: Blood Urea Nitrogen 14 mg/dL (7-17); Calcium 9.4 mg/dL (8.4-10.2); Carbon Dioxide 31 mmol/L (22-30); Chloride 101 mmol/L (98-107); Estimated Glomerular Filt Rate 53; Glucose 108 mg/dL (65-105); Potassium 3.9 mmol/L (3.4-5.0); Sodium 136 mmol/L (137-145)
[2019-10-01] MEDS: METOPROLOL TARTRATE 25 MG TABLET PO ×2 (09:34→16:42)
[2019-10-01] MEDS: FAMOTIDINE 20 MG TABLET PO (09:34)
[2019-10-01] MEDS: CLOPIDOGREL BISULFATE 75 MG TABLET PO (09:34)
[2019-10-01] MEDS: ASPIRIN 81 MG ENTERIC TABLET PO (09:34)
[2019-10-01] MEDS: AMLODIPINE BESYLATE 2.5 MG TABLET PO (09:34)
[2019-10-01] MEDS: ENOXAPARIN 40 MG/0.4 ML SYRINGE SUB-Q (09:34)
[2019-10-01] MEDS: TOLNAFTATE 1% POWDER 45 GM BTL 1 APPLIC TOPICAL ×2 (09:35→16:42)
[2019-10-01] MEDS: LOSARTAN POTASSIUM 100 MG TABLET PO (09:35)
[2019-10-01] MEDS: MELATONIN 5 MG TABLET PO (21:31)
[2019-10-01] MEDS: ATORVASTATIN 40 MG TABLET PO (21:31)
[2019-10-01] MEDS: MELATONIN 3 MG TABLET PO (21:31)
[2019-10-02] VITALS (8 sets, daily range): BP systolic 119–142; BP diastolic 47–66; PULSE 62–72; RESP 18; TEMP 36.6–36.9; O2SAT 95–98
[2019-10-02] MEDS: ASPIRIN 81 MG ENTERIC TABLET PO (09:34)
[2019-10-02] MEDS: AMLODIPINE BESYLATE 2.5 MG TABLET PO (09:34)
[2019-10-02] MEDS: CLOPIDOGREL BISULFATE 75 MG TABLET PO (09:34)
[2019-10-02] MEDS: LOSARTAN POTASSIUM 100 MG TABLET PO (09:34)
[2019-10-02] MEDS: METOPROLOL TARTRATE 25 MG TABLET PO ×2 (09:34→17:36)
[2019-10-02] MEDS: FAMOTIDINE 20 MG TABLET PO (09:34)
[2019-10-02] MEDS: ENOXAPARIN 40 MG/0.4 ML SYRINGE SUB-Q (09:35)
[2019-10-02] MEDS: TOLNAFTATE 1% POWDER 45 GM BTL 1 APPLIC TOPICAL ×2 (09:35→17:37)
--- NOTE | 2019-10-02 11:16 | PCDIET ---
Nutrition Follow-Up Complete: No nutrition diagnosis at this time. Nutrition Diagnosis: Patient to consume 75% of meals or greater. Goal met. Patient consuming 75-100% of most meals on heart healthy, soft and bite size diet. Reports Thrive (sent BID) is delicious . Discussed that heart healthy diet is recommended on discharge to reduce CVA risk. Last recorded weight is 84.5 kg. Recommend obtaining new weight. Bowel Motility: Last documented BM on 09/30/19. Labs Reviewed: Glu (108), Na (136) Meds Noted: Pepcid Additional Notes: No documented skin breakdown. Will continue to monitor with same goal. Nutrition Monitoring and Evaluation: Follow up every 7 days.
--- NOTE | 2019-10-02 11:45 | WPDNEURORHBP ---
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 she is doing well she denies any headache nausea vomiting chest pain shortness of breath fever chills or sore throat and engage in therapy and quite cooperative Review of Systems Review of Systems: All systems reviewed & are unremarkable except as noted in HPI and below Functional Status Ambulation Ability Ability to Ambulate 10 Feet: Standby Assistance Ability to Ambulate 50 Feet With 2 Turns: Standby Assistance Ambulation Assistive Devices: Walker, Wheeled Transfers Ability Ability to Transfer In/Out of Chair: Minimum Assistance X 1 Exam Const: General: comfortable and no acute distress HENMT: General nose exam: Normal nares present Mouth: Yes moist mucous membranes Eyes: General: appearance normal, both eyes and all related structures Neck: Neck: supple and no JVD Resp: Effort & Inspection: normal respiratory effort Auscultation: clear to auscultation bilaterally Cardio: Rate: regular rate Rhythm: regular rhythm GI: GI Palp: Yes Soft to palpation Auscultation: normal bowel sounds Skin: General skin exam: normal color and no rashes or lesions noted Neuro: Other: patient is awake alert and well oriented fluent speech left-sided hemiparesis left-sided visual field defect and left-sided neglect motivated and working with therapy is still needing plenty of assistance Extrem: General: normal to inspection Psych: Mental Status: mental status grossly normal Objective Data Vital Signs Vital Signs: Vital Signs - 24 hr 10/01/19 13:00 10/01/19 14:00 10/01/19 16:42 Temperature 36.6 C Pulse Rate 58 L 60 60 Respiratory Rate 16 Blood Pressure 133/50 L 126/54 L Pulse Oximetry 97 99 10/01/19 20:00 10/01/19 22:00 10/02/19 06:00 Temperature 36.4 C L 36.9 C Pulse Rate 70 70 64 Respiratory Rate 18 18 18 Blood Pressure 138/43 L 129/66 Pulse Oximetry 97 97 97 10/02/19 08:00 10/02/19 09:34 Temperature Pulse Rate 64 64 Respiratory Rate 18 Blood Pressure Pulse Oximetry 97 Intake/Output Intake/Output: Intake & Output 09/29/19 09/30/19 10/01/1929/20 23:59 23:59 23:59 23:59 Intake Total 720 720 720 240 Balance 720 720 720 240 Meds/Results Medications: Active Medications Generic Name Dose Route Start Last Admin Trade Name Freq PRN Reason Stop Dose Admin Acetaminophen 650 mg 09/24/19 04:08 09/28/19 03:51 Tylenol Tablet PO 650 mg Q6H PRN Administration Pain (Scale Score 1-3) Amlodipine Besylate 2.5 mg 09/24/19 09:00 10/02/19 09:34 Norvasc PO 2.5 mg DAILY DAO Administration Aspirin 81 mg 09/24/19 09:00 10/02/19 09:34 Aspirin Ec PO 81 mg DAILY DAO Administration Atorvastatin Calcium 40 mg 09/24/19 21:00 10/01/19 21:31 Lipitor PO 40 mg HS DAO Administration Clopidogrel Bisulfate 75 mg 09/24/19 09:00 10/02/19 09:34 Plavix PO 75 mg DAILY DAO Administration Enoxaparin Sodium 40 mg 09/24/19 09:00 10/02/19 09:35 Lovenox SUB-Q 40 mg DAILY DAO Administration Famotidine 20 mg 09/24/19 09:00 10/02/19 09:34 Pepcid PO 20 mg DAILY DAO Administration Hydrocortisone 1 applic 09/24/19 09:00 10/02/19 09:35 Proctocream-Hc 2.5% TOPICAL 1 applic BID DAO Administration Losartan Potassium 100 mg 09/24/19 09:00 10/02/19 09:34 Cozaar PO 100 mg DAILY DAO Administration Meclizine HCl 25 mg 09/24/19 04:08 09/25/19 11:00 Antivert PO 25 mg TID PRN Administration Dizziness Or Vertigo Melatonin 3 mg 09/29/19 08:50 10/01/19 21:31 Melatonin PO 3 mg HS DAO Administration Melatonin 5 mg 09/29/19 21:00 10/01/19 21:31 Melatonin PO 5 mg HS DAO Administration Metoprolol Tartrate 25 mg 09/24/19 09:00 10/02/19 09:34 Lopressor PO 25 m
[2019-10-02] MEDS: MELATONIN 3 MG TABLET PO (20:46)
[2019-10-02] MEDS: ATORVASTATIN 40 MG TABLET PO (20:46)
[2019-10-02] MEDS: MELATONIN 5 MG TABLET PO (20:46)
[2019-10-03] VITALS (7 sets, daily range): BP systolic 123–146; BP diastolic 57–83; PULSE 55–70; RESP 16–18; TEMP 36.3–36.9; O2SAT 98–100
[2019-10-03] MEDS: AMLODIPINE BESYLATE 2.5 MG TABLET PO (09:14)
[2019-10-03] MEDS: FAMOTIDINE 20 MG TABLET PO (09:15)
[2019-10-03] MEDS: ASPIRIN 81 MG ENTERIC TABLET PO (09:15)
[2019-10-03] MEDS: CLOPIDOGREL BISULFATE 75 MG TABLET PO (09:15)
[2019-10-03] MEDS: ENOXAPARIN 40 MG/0.4 ML SYRINGE SUB-Q (09:15)
[2019-10-03] MEDS: MECLIZINE HCL 25 MG TABLET PO (09:15)
[2019-10-03] MEDS: METOPROLOL TARTRATE 25 MG TABLET PO ×2 (09:16→17:27)
[2019-10-03] MEDS: LOSARTAN POTASSIUM 100 MG TABLET PO (09:16)
[2019-10-03] MEDS: TOLNAFTATE 1% POWDER 45 GM BTL 1 APPLIC TOPICAL ×2 (09:16→17:27)
--- NOTE | 2019-10-03 15:27 | WPDNEURORHBP ---
Subjective Date/time seen: 10/03/19 15:27 Interval history: this 83-year-old woman is recuperating from the right hemispheric stroke which has left her significantly left-sided weakness visual field defect and neglect but she is cheerful cooperative motivated and working with it denies any unusual neurological symptoms beside which she already has no headache nausea vomiting chest pain shortness of breath fever chills or sore throat Review of Systems Review of Systems: All systems reviewed & are unremarkable except as noted in HPI and below Functional Status Ambulation Ability Ability to Ambulate 10 Feet: Standby Assistance Ability to Ambulate 50 Feet With 2 Turns: Standby Assistance Ambulation Assistive Devices: Walker, Wheeled Transfers Ability Ability to Transfer In/Out of Chair: Minimum Assistance X 1 Exam Const: General: comfortable and no acute distress HENMT: General nose exam: Normal nares present Mouth: Yes moist mucous membranes Eyes: General: appearance normal, both eyes and all related structures Neck: Neck: supple and no JVD Resp: Effort & Inspection: normal respiratory effort Auscultation: clear to auscultation bilaterally Cardio: Rate: regular rate Rhythm: regular rhythm GI: GI Palp: Yes Soft to palpation Auscultation: normal bowel sounds Skin: General skin exam: normal color and no rashes or lesions noted Neuro: Speech: normal speech Other: left-sided hemiparesis needing significant assistance for most of the activities of daily living Extrem: General: normal to inspection Psych: Mental Status: mental status grossly normal Objective Data Vital Signs Vital Signs: Vital Signs - 24 hr 10/02/19 17:36 10/02/19 20:00 10/02/19 22:00 Temperature 36.6 C Pulse Rate 62 72 72 Respiratory Rate 18 18 Blood Pressure 142/62 H Pulse Oximetry 97 97 10/03/19 06:00 10/03/19 09:16 Temperature 36.3 C L Pulse Rate 69 70 Respiratory Rate 18 Blood Pressure 146/83 H Pulse Oximetry 100 Intake/Output Intake/Output: Intake & Output 09/30/19 10/01/19 10/02/19 10/03/19 23:59 23:59 23:59 23:59 Intake Total 720 720 600 360 Balance 720 720 600 360 Meds/Results Medications: Active Medications Generic Name Dose Route Start Last Admin Trade Name Freq PRN Reason Stop Dose Admin Acetaminophen 650 mg 09/24/19 04:08 09/28/19 03:51 Tylenol Tablet PO 650 mg Q6H PRN Administration Pain (Scale Score 1-3) Amlodipine Besylate 2.5 mg 09/24/19 09:00 10/03/19 09:14 Norvasc PO 2.5 mg DAILY DAO Administration Aspirin 81 mg 09/24/19 09:00 10/03/19 09:15 Aspirin Ec PO 81 mg DAILY DAO Administration Atorvastatin Calcium 40 mg 09/24/19 21:00 10/02/19 20:46 Lipitor PO 40 mg HS DAO Administration Clopidogrel Bisulfate 75 mg 09/24/19 09:00 10/03/19 09:15 Plavix PO 75 mg DAILY DOA Administration Enoxaparin Sodium 40 mg 09/24/19 09:00 10/03/19 09:15 Lovenox SUB-Q 40 mg DAILY DAO Administration Famotidine 20 mg 09/24/19 09:00 10/03/19 09:15 Pepcid PO 20 mg DAILY DAO Administration Hydrocortisone 1 applic 09/24/19 09:00 10/03/19 09:15 Proctocream-Hc 2.5% TOPICAL 1 applic BID DAO Administration Losartan Potassium 100 mg 09/24/19 09:00 10/03/19 09:16 Cozaar PO 100 mg DAILY DAO Administration Meclizine HCl 25 mg 09/24/19 04:08 10/03/19 09:15 Antivert PO 25 mg TID PRN Administration Dizziness Or Vertigo Melatonin 3 mg 09/29/19 08:50 10/02/19 20:46 Melatonin PO 3 mg HS DAO Administration Melatonin 5 mg 09/29/19 21:00 10/02/19 20:46 Melatonin PO 5 mg HS [facility] Administration Metoprolol Tartrate 25 mg 09/24/19 09:00 10/03/19 09:16 Lopressor PO 25 mg BID DAO Administration Ondansetron HCl 4 mg 09/24/19 04:08 Zofran Odt PO Q6H PRN Nausea And Vomiting Tolnaftate 1 applic 09/24/19 09:00 10/03/19 09:16 Tolnaftate 1% Powder [facility]
[2019-10-03] MEDS: ATORVASTATIN 40 MG TABLET PO (20:45)
[2019-10-03] MEDS: MELATONIN 5 MG TABLET PO (20:45)
[2019-10-03] MEDS: MELATONIN 3 MG TABLET PO (20:45)
[2019-10-04 06:00] VITALS: BP 123/44; PULSE 65; RESP 18; TEMP 36.3; O2SAT 96
[2019-10-04] MEDS: ASPIRIN 81 MG ENTERIC TABLET PO (09:49)
[2019-10-04] MEDS: ENOXAPARIN 40 MG/0.4 ML SYRINGE SUB-Q (09:49)
[2019-10-04] MEDS: AMLODIPINE BESYLATE 2.5 MG TABLET PO (09:49)
[2019-10-04] MEDS: LOSARTAN POTASSIUM 100 MG TABLET PO (09:49)
[2019-10-04 09:50] VITALS: PULSE 66
[2019-10-04] MEDS: FAMOTIDINE 20 MG TABLET PO (09:50)
[2019-10-04] MEDS: METOPROLOL TARTRATE 25 MG TABLET PO ×2 (09:50→17:45)
[2019-10-04] MEDS: CLOPIDOGREL BISULFATE 75 MG TABLET PO (09:50)
[2019-10-04] MEDS: MECLIZINE HCL 25 MG TABLET PO (09:50)
[2019-10-04] MEDS: TOLNAFTATE 1% POWDER 45 GM BTL 1 APPLIC TOPICAL ×2 (09:51→17:45)
[2019-10-04 12:00] VITALS: PULSE 66; RESP 18; O2SAT 96
[2019-10-04 14:00] VITALS: BP 118/53; PULSE 60; RESP 20; TEMP 36.6; O2SAT 96
[2019-10-04 17:45] VITALS: PULSE 62
--- NOTE | 2019-10-04 18:00 | WPDNEURORHBP ---
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 she is little nauseated this morning however is gotten better after the medication was given she denies any headache nausea vomiting chest pain shortness of breath fever chills or sore throat Review of Systems Review of Systems: All systems reviewed & are unremarkable except as noted in HPI and below Functional Status Ambulation Ability Ability to Ambulate 10 Feet: Standby Assistance Ability to Ambulate 50 Feet With 2 Turns: Standby Assistance Ambulation Assistive Devices: Walker, Wheeled Transfers Ability Ability to Transfer In/Out of Chair: Minimum Assistance X 1 Exam Const: General: comfortable HENMT: General nose exam: Normal nares present Mouth: Yes moist mucous membranes Eyes: General: appearance normal, both eyes and all related structures Neck: Neck: supple and no JVD Resp: Effort & Inspection: normal respiratory effort Auscultation: clear to auscultation bilaterally Cardio: Rate: regular rate Rhythm: regular rhythm GI: GI Palp: Yes Soft to palpation Auscultation: normal bowel sounds Skin: General skin exam: normal color and no rashes or lesions noted Neuro: Other: she is awake and alert well oriented with fluent speech and language functions follows all command left-sided hemiparesis and left-sided visual field defect is very slowly improving Extrem: General: normal to inspection Psych: Mental Status: mental status grossly normal Objective Data Vital Signs Vital Signs: Vital Signs - 24 hr 10/03/19 20:00 10/03/19 21:53 10/04/19 06:00 Temperature 36.9 C 36.3 C L Pulse Rate 55 L 65 Respiratory Rate 16 18 Blood Pressure 123/74 123/44 L Pulse Oximetry 98 98 96 10/04/19 09:50 10/04/19 12:00 10/04/19 14:00 Temperature 36.6 C Pulse Rate 66 66 60 Respiratory Rate 18 20 Blood Pressure 118/53 L Pulse Oximetry 96 96 10/04/19 17:45 Temperature Pulse Rate 62 Respiratory Rate Blood Pressure Pulse Oximetry Intake/Output Intake/Output: Intake & Output 10/01/19 10/02/19 10/03/19 10/04/19 23:59 23:59 23:59 23:59 Intake Total 755 716 9628 600 Balance 498 384 4553 600 Meds/Results Medications: Active Medications Generic Name Dose Route Start Last Admin Trade Name Freq PRN Reason Stop Dose Admin Acetaminophen 650 mg 09/24/19 04:08 09/28/19 03:51 Tylenol Tablet PO 650 mg Q6H PRN Administration Pain (Scale Score 1-3) Amlodipine Besylate 2.5 mg 09/24/19 09:00 10/04/19 09:49 Norvasc PO 2.5 mg DAILY DAO Administration Aspirin 81 mg 09/24/19 09:00 10/04/19 09:49 Aspirin Ec PO 81 mg DAILY DAO Administration Atorvastatin Calcium 40 mg 09/24/19 21:00 10/03/19 20:45 Lipitor PO 40 mg HS DAO Administration Clopidogrel Bisulfate 75 mg 09/24/19 09:00 10/04/19 09:50 Plavix PO 75 mg DAILY DAO Administration Enoxaparin Sodium 40 mg 09/24/19 09:00 10/04/19 09:49 Lovenox SUB-Q 40 mg DAILY DAO Administration Famotidine 20 mg 09/24/19 09:00 10/04/19 09:50 Pepcid PO 20 mg DAILY DAO Administration Hydrocortisone 1 applic 09/24/19 09:00 10/04/19 17:45 Proctocream-Hc 2.5% TOPICAL 1 applic BID DAO Administration Losartan Potassium 100 mg 09/24/19 09:00 10/04/19 09:49 Cozaar PO 100 mg DAILY DAO Administration Meclizine HCl 25 mg 09/24/19 04:08 10/04/19 09:50 Antivert PO 25 mg TID PRN Administration Dizziness Or Vertigo Melatonin 3 mg 09/29/19 08:50 10/03/19 20:45 Melatonin PO 3 mg HS DAO Administration Melatonin 5 mg 09/29/19 21:00 10/03/19 20:45 Melatonin PO 5 mg HS DAO Administration Metoprolol Tartrate 25 mg 09/24/19 09:00 10/04/19 17:45 Lopressor PO 25 mg BID DAO Administration Ondansetron HCl 4 mg 09/24/19 04:08 Zofra
[2019-10-04] MEDS: MELATONIN 5 MG TABLET PO (20:14)
[2019-10-04] MEDS: MELATONIN 3 MG TABLET PO (20:14)
[2019-10-04] MEDS: ATORVASTATIN 40 MG TABLET PO (20:14)
[2019-10-04 22:00] VITALS: BP 126/48; PULSE 60; RESP 18; TEMP 36.7; O2SAT 100
[2019-10-05] VITALS (7 sets, daily range): BP systolic 121–138; BP diastolic 43–62; PULSE 63–68; RESP 16–20; TEMP 36.4–36.8; O2SAT 97–100
[2019-10-05] MEDS: LOSARTAN POTASSIUM 100 MG TABLET PO (08:45)
[2019-10-05] MEDS: METOPROLOL TARTRATE 25 MG TABLET PO ×2 (08:45→17:44)
[2019-10-05] MEDS: AMLODIPINE BESYLATE 2.5 MG TABLET PO (08:45)
[2019-10-05] MEDS: CLOPIDOGREL BISULFATE 75 MG TABLET PO (08:45)
[2019-10-05] MEDS: ASPIRIN 81 MG ENTERIC TABLET PO (08:45)
[2019-10-05] MEDS: ENOXAPARIN 40 MG/0.4 ML SYRINGE SUB-Q (08:46)
[2019-10-05] MEDS: FAMOTIDINE 20 MG TABLET PO (08:46)
[2019-10-05] MEDS: TOLNAFTATE 1% POWDER 45 GM BTL 1 APPLIC TOPICAL ×2 (08:46→17:44)
--- NOTE | 2019-10-05 09:50 | WPDNEURORHBP ---
Subjective Date/time seen: 10/05/19 09:50 left hemiparesis ,nausea improving,chronic renal disease, hypertension Review of Systems Review of Systems: All systems reviewed & are unremarkable except as noted in HPI and below Functional Status Ambulation Ability Ability to Ambulate 10 Feet: Standby Assistance Ability to Ambulate 50 Feet With 2 Turns: Standby Assistance Ambulation Assistive Devices: Walker, Wheeled Transfers Ability Ability to Transfer In/Out of Chair: Minimum Assistance X 1 Exam Const: General: no acute distress Orientation/consciousness: patient oriented x3 HENMT: Head: normal to inspection General nose exam: Normal external nose present and No nasal discharge present Face and sinus: normal facial exam Mouth: Yes Normal oral and palatal mucosa present Eyes: General: appearance normal, both eyes and all related structures Visual Serna: normal visual serna by confrontation (left visual field cut) Alignment and Position: alignment normal Eyelids: eyelids normal Conjunctivae: conjunctivae normal Sclera: sclerae normal Pupils: Equal, round and reactive pupils present EOM: EOMs intact bilaterally Direct Ophthalmoscopy: normal light reflex Neck: Neck: full ROM Thyroid: thyroid normal Resp: Effort & Inspection: normal respiratory effort Auscultation: clear to auscultation bilaterally Cardio: Rate: regular rate Rhythm: regular rhythm GI: Percussion: Yes normal to percussion Auscultation: normal bowel sounds Skin: General skin exam: no rashes or lesions noted Neuro: General: patient oriented x3 and moves all extremities Cranial nerves: Yes Equal, round and reactive pupils present, Yes Bilaterally intact EOM present, Yes Nystagmus not present, Yes Midline tongue present, Yes Symmetric palate elevation present and Yes Ability to bilaterally rotate head present Cognition (Neuro): normal cognition Speech: normal speech Motor exam (neuro): Abnormal motor strength present (left hemiparesis) Psych: Appearance: grossly normal Objective Data Vital Signs Vital Signs: Vital Signs - 24 hr 10/04/19 12:00 10/04/19 14:00 10/04/19 17:45 Temperature 36.6 C Pulse Rate 66 60 62 Respiratory Rate 18 20 Blood Pressure 118/53 L Pulse Oximetry 96 96 10/04/19 22:00 10/05/19 06:00 10/05/19 08:45 Temperature 36.7 C 36.5 C Pulse Rate 60 64 64 Respiratory Rate 18 18 Blood Pressure 126/48 L 138/62 Pulse Oximetry 100 97 Intake/Output Intake/Output: Intake & Output 10/02/19 10/03/19 10/04/19 10/05/19 23:59 23:59 23:59 23:59 Intake Total 600 1560 960 240 Balance 600 1560 960 240 Meds/Results Medications: Active Medications Generic Name Dose Route Start Last Admin Trade Name Freq PRN Reason Stop Dose Admin Acetaminophen 650 mg 09/24/19 04:08 09/28/19 03:51 Tylenol Tablet PO 650 mg Q6H PRN Administration Pain (Scale Score 1-3) Amlodipine Besylate 2.5 mg 09/24/19 09:00 10/05/19 08:45 Norvasc PO 2.5 mg DAILY DAO Administration Aspirin 81 mg 09/24/19 09:00 10/05/19 08:45 Aspirin Ec PO 81 mg DAILY DAO Administration Atorvastatin Calcium 40 mg 09/24/19 21:00 10/04/19 20:14 Lipitor PO 40 mg HS DAO Administration Clopidogrel Bisulfate 75 mg 09/24/19 09:00 10/05/19 08:45 Plavix PO 75 mg DAILY DAO Administration Enoxaparin Sodium 40 mg 09/24/19 09:00 10/05/19 08:46 Lovenox SUB-Q 40 mg DAILY DAO Administration Famotidine 20 mg 09/24/19 09:00 10/05/19 08:46 Pepcid PO 20 mg DAILY DAO Administration Hydrocortisone 1 applic 09/24/19 09:00 10/05/19 08:46 Proctocream-Hc 2.5% TOPICAL 1 applic BID DAO Administration Losartan Potassium 100 mg 09/24/19 09:00 10/05/19 08:45 Cozaar PO 100 mg DAILY DAO Administration Meclizine HCl 25 mg 09/24/19 04:08 10/04/19 09:50 Antivert PO 25 mg TID PRN Administration Dizziness Or Vertigo Melatonin 3 mg 09/29/19 08:50 10/04/19 20:14
[2019-10-05] MEDS: ATORVASTATIN 40 MG TABLET PO (20:20)
[2019-10-05] MEDS: MELATONIN 5 MG TABLET PO (20:20)
[2019-10-05] MEDS: MELATONIN 3 MG TABLET PO (20:20)
[2019-10-06 06:00] VITALS: BP 136/45; PULSE 72; RESP 16; TEMP 37.1; O2SAT 97
[2019-10-06 08:00] VITALS: PULSE 72; RESP 16; O2SAT 97
[2019-10-06 09:53] VITALS: PULSE 72
[2019-10-06] MEDS: CLOPIDOGREL BISULFATE 75 MG TABLET PO (09:53)
[2019-10-06] MEDS: ASPIRIN 81 MG ENTERIC TABLET PO (09:53)
[2019-10-06] MEDS: METOPROLOL TARTRATE 25 MG TABLET PO ×2 (09:53→17:45)
[2019-10-06] MEDS: ENOXAPARIN 40 MG/0.4 ML SYRINGE SUB-Q (09:53)
[2019-10-06] MEDS: TOLNAFTATE 1% POWDER 45 GM BTL 1 APPLIC TOPICAL ×2 (09:54→17:46)
[2019-10-06] MEDS: LOSARTAN POTASSIUM 100 MG TABLET PO (09:54)
[2019-10-06] MEDS: AMLODIPINE BESYLATE 2.5 MG TABLET PO (09:54)
[2019-10-06] MEDS: FAMOTIDINE 20 MG TABLET PO (09:54)
--- NOTE | 2019-10-06 13:22 | WPDNEURORHBP ---
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 she remains awake and alert without any specific new complaints particularly denying any headache nausea vomiting chest pain shortness of breath fever chills or sore throat Review of Systems Review of Systems: All systems reviewed & are unremarkable except as noted in HPI and below Functional Status Ambulation Ability Ability to Ambulate 10 Feet: Contact Guard Ability to Ambulate 50 Feet With 2 Turns: Contact Guard Ambulation Assistive Devices: Walker, Wheeled Transfers Ability Ability to Transfer In/Out of Chair: Minimum Assistance X 1 Exam Const: General: comfortable and no acute distress HENMT: General nose exam: Normal nares present Mouth: Yes moist mucous membranes Eyes: General: appearance normal, both eyes and all related structures Other: legally blind in the right eye and left-sided visual field Neck: Neck: supple and no JVD Resp: Effort & Inspection: normal respiratory effort Auscultation: clear to auscultation bilaterally Cardio: Rate: regular rate Rhythm: regular rhythm GI: GI Palp: Yes Soft to palpation Auscultation: normal bowel sounds Skin: General skin exam: normal color and no rashes or lesions noted Neuro: Other: patient is awake alert well oriented does have a cognitive deficit related to right hemispheric stroke left-sided neglect left-sided visual field defect and moderately severe left-sided hemiparesis Extrem: General: normal to inspection Psych: Mental Status: mental status grossly normal Objective Data Vital Signs Vital Signs: Vital Signs - 24 hr 10/05/19 14:00 10/05/19 17:44 10/05/19 22:00 Temperature 36.4 C 36.8 C Pulse Rate 64 64 68 Respiratory Rate 20 16 Blood Pressure 129/58 L 124/43 L Pulse Oximetry 98 98 10/06/19 06:00 10/06/19 08:00 10/06/19 09:53 Temperature 37.1 C Pulse Rate 72 72 72 Respiratory Rate 16 16 Blood Pressure 136/45 L Pulse Oximetry 97 97 Intake/Output Intake/Output: Intake & Output 10/03/19 10/04/19 10/05/19 10/06/19 23:59 23:59 23:59 23:59 Intake Total 1560 960 720 240 Balance 1560 960 720 240 Meds/Results Medications: Active Medications Generic Name Dose Route Start Last Admin Trade Name Freq PRN Reason Stop Dose Admin Acetaminophen 650 mg 09/24/19 04:08 09/28/19 03:51 Tylenol Tablet PO 650 mg Q6H PRN Administration Pain (Scale Score 1-3) Amlodipine Besylate 2.5 mg 09/24/19 09:00 10/06/19 09:54 Norvasc PO 2.5 mg DAILY DAO Administration Aspirin 81 mg 09/24/19 09:00 10/06/19 09:53 Aspirin Ec PO 81 mg DAILY DAO Administration Atorvastatin Calcium 40 mg 09/24/19 21:00 10/05/19 20:20 Lipitor PO 40 mg HS DAO Administration Clopidogrel Bisulfate 75 mg 09/24/19 09:00 10/06/19 09:53 Plavix PO 75 mg DAILY DAO Administration Enoxaparin Sodium 40 mg 09/24/19 09:00 10/06/19 09:53 Lovenox SUB-Q 40 mg DAILY DAO Administration Famotidine 20 mg 09/24/19 09:00 10/06/19 09:54 Pepcid PO 20 mg DAILY DAO Administration Hydrocortisone 1 applic 09/24/19 09:00 10/06/19 09:54 Proctocream-Hc 2.5% TOPICAL 1 applic BID DAO Administration Losartan Potassium 100 mg 09/24/19 09:00 10/06/19 09:54 Cozaar PO 100 mg DAILY DAO Administration Meclizine HCl 25 mg 09/24/19 04:08 10/04/19 09:50 Antivert PO 25 mg TID PRN Administration Dizziness Or Vertigo Melatonin 3 mg 09/29/19 08:50 10/05/19 20:20 Melatonin PO 3 mg HS DAO Administration Melatonin 5 mg 09/29/19 21:00 10/05/19 20:20 Melatonin PO 5 mg HS DAO Administration Metoprolol Tartrate 25 mg 09/24/19 09:00 10/06/19 09:53 Lopressor PO 25 mg BID DAO Administration Ondansetron HCl 4 mg 09/24/19 04
[2019-10-06 14:00] VITALS: BP 111/48; PULSE 59; RESP 16; TEMP 36.4; O2SAT 98
[2019-10-06 17:45] VITALS: PULSE 64
[2019-10-06] MEDS: MELATONIN 3 MG TABLET PO (21:22)
[2019-10-06] MEDS: MELATONIN 5 MG TABLET PO (21:22)
[2019-10-06] MEDS: ATORVASTATIN 40 MG TABLET PO (21:22)
[2019-10-06 22:00] VITALS: BP 127/39; PULSE 64; RESP 17; TEMP 36.6; O2SAT 97
[2019-10-07 06:00] VITALS: BP 142/82; PULSE 66; RESP 19; TEMP 36.2; O2SAT 97
[2019-10-07 09:36] VITALS: PULSE 66
[2019-10-07] MEDS: ENOXAPARIN 40 MG/0.4 ML SYRINGE SUB-Q (09:36)
[2019-10-07] MEDS: ASPIRIN 81 MG ENTERIC TABLET PO (09:36)
[2019-10-07] MEDS: METOPROLOL TARTRATE 25 MG TABLET PO ×2 (09:36→17:47)
[2019-10-07] MEDS: LOSARTAN POTASSIUM 100 MG TABLET PO (09:36)
[2019-10-07] MEDS: AMLODIPINE BESYLATE 2.5 MG TABLET PO (09:36)
[2019-10-07] MEDS: CLOPIDOGREL BISULFATE 75 MG TABLET PO (09:36)
[2019-10-07] MEDS: FAMOTIDINE 20 MG TABLET PO (09:36)
[2019-10-07] MEDS: TOLNAFTATE 1% POWDER 45 GM BTL 1 APPLIC TOPICAL ×2 (09:37→17:48)
--- NOTE | 2019-10-07 09:42 | WPDNEURORHBP ---
Subjective Date/time seen: 10/07/19 09:42 Interval history: this 83-year-old woman is here after having had a right hemispheric stroke which has left her with the left-sided moderately severe hemiparesis left-sided visual field defect and left-sided neglect this morning she was relatively confused however getting better at the days going by she denies any headache nausea vomiting chest pain shortness of breath fever chills or sore throat Review of Systems Review of Systems: All systems reviewed & are unremarkable except as noted in HPI and below Functional Status Ambulation Ability Ability to Ambulate 10 Feet: Contact Guard Ability to Ambulate 50 Feet With 2 Turns: Contact Guard Ambulation Assistive Devices: Walker, Wheeled Transfers Ability Ability to Transfer In/Out of Chair: Minimum Assistance X 1 Exam Const: General: comfortable and no acute distress HENMT: General nose exam: Normal nares present Mouth: Yes moist mucous membranes Eyes: General: appearance normal, both eyes and all related structures Neck: Neck: supple and no JVD Resp: Effort & Inspection: normal respiratory effort Auscultation: clear to auscultation bilaterally Cardio: Rate: regular rate Rhythm: regular rhythm GI: GI Palp: Yes Soft to palpation Auscultation: normal bowel sounds Skin: General skin exam: normal color and no rashes or lesions noted Neuro: Other: patient is awake and alert well oriented has left-sided moderately severe hemiparesis left-sided neglect and left-sided visual field defect Extrem: General: normal to inspection Psych: Mental Status: mental status grossly normal Objective Data Vital Signs Vital Signs: Vital Signs - 24 hr 10/06/19 09:53 10/06/19 14:00 10/06/19 17:45 Temperature 36.4 C L Pulse Rate 72 59 L 64 Respiratory Rate 16 Blood Pressure 111/48 L Pulse Oximetry 98 10/06/19 22:00 10/07/19 06:00 10/07/19 09:36 Temperature 36.6 C 36.2 C L Pulse Rate 64 66 66 Respiratory Rate 17 19 Blood Pressure 127/39 L 142/82 H Pulse Oximetry 97 97 Intake/Output Intake/Output: Intake & Output 10/04/19 10/05/19 10/06/19 10/07/19 23:59 23:59 23:59 23:59 Intake Total 960 720 700 240 Balance 960 720 700 240 Meds/Results Medications: Active Medications Generic Name Dose Route Start Last Admin Trade Name Freq PRN Reason Stop Dose Admin Acetaminophen 650 mg 09/24/19 04:08 09/28/19 03:51 Tylenol Tablet PO 650 mg Q6H PRN Administration Pain (Scale Score 1-3) Amlodipine Besylate 2.5 mg 09/24/19 09:00 10/07/19 09:36 Norvasc PO 2.5 mg DAILY DAO Administration Aspirin 81 mg 09/24/19 09:00 10/07/19 09:36 Aspirin Ec PO 81 mg DAILY DAO Administration Atorvastatin Calcium 40 mg 09/24/19 21:00 10/06/19 21:22 Lipitor PO 40 mg HS DAO Administration Clopidogrel Bisulfate 75 mg 09/24/19 09:00 10/07/19 09:36 Plavix PO 75 mg DAILY DAO Administration Enoxaparin Sodium 40 mg 09/24/19 09:00 10/07/19 09:36 Lovenox SUB-Q 40 mg DAILY DAO Administration Famotidine 20 mg 09/24/19 09:00 10/07/19 09:36 Pepcid PO 20 mg DAILY DAO Administration Hydrocortisone 1 applic 09/24/19 09:00 10/07/19 09:37 Proctocream-Hc 2.5% TOPICAL 1 applic BID DAO Administration Losartan Potassium 100 mg 09/24/19 09:00 10/07/19 09:36 Cozaar PO 100 mg DAILY DAO Administration Meclizine HCl 25 mg 09/24/19 04:08 10/04/19 09:50 Antivert PO 25 mg TID PRN Administration Dizziness Or Vertigo Melatonin 3 mg 09/29/19 08:50 10/06/19 21:22 Melatonin PO 3 mg HS DAO Administration Melatonin 5 mg 09/29/19 21:00 10/06/19 21:22 Melatonin PO 5 mg HS DAO Administration Metoprolol Tartrate 25 mg 09/24/19 09:00 10/07/19 09:36 Lopressor PO 25 mg BID DAO Administration Ondansetron HCl 4 mg 09/24/19 04:08 Zofran Odt PO Q6H PRN Nausea And Vomiting Tolnaftate 1 applic 09/23
[2019-10-07 10:00] VITALS: PULSE 66; RESP 19; O2SAT 97
--- NOTE | 2019-10-07 13:08 | PCDIET ---
Nutrition Follow-Up Complete: No nutrition diagnosis at this time. Nutrition Goal: Patient to consume 75% of meals or greater. Goal met. Patient consuming 75-100% of most meals on heart healthy, soft and bite size diet which is appropriate. Continues to take [employer] BID. Patient requesting to have regular diet so she can order chicken tenders. Encouraged patient to limit fried foods ocean transportation intermediary to reduce risk of future CVA. Last recorded weight is 84.5 kg. Recommend obtaining new weight. Bowel Motility: +BM today. Labs Reviewed: No new chemistry available. Meds Noted: Pepcid Additional Notes: No documented skin breakdown. Will continue to monitor with same goal. Nutrition Monitoring and Evaluation: Follow up every 5 days.
[2019-10-07 14:30] VITALS: BP 103/51; PULSE 61; RESP 18; TEMP 36.4; O2SAT 98
[2019-10-07 17:47] VITALS: PULSE 62
[2019-10-07] MEDS: ATORVASTATIN 40 MG TABLET PO (21:36)
[2019-10-07] MEDS: MELATONIN 5 MG TABLET PO (21:37)
[2019-10-07] MEDS: MELATONIN 3 MG TABLET PO (21:37)
[2019-10-07 22:00] VITALS: BP 132/41; PULSE 90; RESP 20; TEMP 36.9; O2SAT 96
[2019-10-08 04:45] LABS: Basophils Percent Auto 0.4 % (0.2-1.2); Eosinophils Absolute Auto 0.4 K/mm3 (0-0.3); Eosinophils Percent Auto 3.8 % (0-4.4); Hemoglobin 13.3 g/dL (12.0-15.0); Immature Granulocyte Absolute 0.05 K/mm3 (0.00-0.031); Immature Granulocyte Percent A 0.5 % (0-0.5); Lymphocytes Absolute Auto 1.83 K/mm3 (0.9-3.2); Lymphocytes Percent Auto 17.5 % (18.3-44.2); Mean Corpuscular HGB Conc 31.7 g/dl (32-36); Mean Corpuscular Hemoglobin 28.5 pg (26-34); Mean Corpuscular Volume 90.1 fl (80-100); Mean Platelet Volume 9.6 fl (7.4-10.4); Monocytes Percent Auto 9.6 % (2.6-8.5); Neutrophils Absolute Auto 7.1 K/mm3 (1.3-6.7); Neutrophils Percent Auto 68.2 % (45.5-73.1); Platelet Count Result 362 k/mm3 (150-375); Red Blood Count 4.66 M/mm3 (4.2-5.4); Red Cell Distribution Width 14.8 % (11.5-14.5); White Blood Count 10.5 K/mm3 (4.5-10.0)
[2019-10-08 04:58] LABS: Blood Urea Nitrogen 20 mg/dL (7-17); Calcium 9.6 mg/dL (8.4-10.2); Carbon Dioxide 29 mmol/L (22-30); Chloride 99 mmol/L (98-107); Estimated Glomerular Filt Rate 39; Glucose 123 mg/dL (65-105); Potassium 4.1 mmol/L (3.4-5.0); Sodium 134 mmol/L (137-145)
[2019-10-08] MEDS: ACETAMINOPHEN 325 MG TABLET 650 MG PO (05:34)
[2019-10-08 06:00] VITALS: BP 140/62; PULSE 70; RESP 18; TEMP 36.4; O2SAT 96
[2019-10-08 08:18] VITALS: PULSE 70
[2019-10-08] MEDS: AMLODIPINE BESYLATE 2.5 MG TABLET PO (08:18)
[2019-10-08] MEDS: ASPIRIN 81 MG ENTERIC TABLET PO (08:18)
[2019-10-08] MEDS: CLOPIDOGREL BISULFATE 75 MG TABLET PO (08:18)
[2019-10-08] MEDS: FAMOTIDINE 20 MG TABLET PO (08:18)
[2019-10-08] MEDS: METOPROLOL TARTRATE 25 MG TABLET PO ×2 (08:18→17:19)
[2019-10-08] MEDS: LOSARTAN POTASSIUM 100 MG TABLET PO (08:19)
[2019-10-08] MEDS: ENOXAPARIN 40 MG/0.4 ML SYRINGE SUB-Q (08:19)
[2019-10-08] MEDS: TOLNAFTATE 1% POWDER 45 GM BTL 1 APPLIC TOPICAL ×2 (08:19→17:19)
--- NOTE | 2019-10-08 12:33 | WPDNEURORHBP ---
Subjective Date/time seen: 10/08/19 12:33 Interval history: This is noted reflecting the visit of October 08, 2019 this patient is here after having had stroke with significant left-sided deficit and also left-sided visual field defect and neglect she has done fairly well however still needs further therapy and she will be discharged to a step-down unit on October 09, 2019 she denies any headache nausea vomiting chest pain shortness of breath fever chills or sore throat Review of Systems Review of Systems: All systems reviewed & are unremarkable except as noted in HPI and below Functional Status Ambulation Ability Ability to Ambulate 10 Feet: Independent Ability to Ambulate 50 Feet With 2 Turns: Standby Assistance Ambulation Assistive Devices: Walker, Wheeled Transfers Ability Ability to Transfer In/Out of Chair: Minimum Assistance X 1 Exam Const: General: comfortable and no acute distress HENMT: General nose exam: Normal nares present Mouth: Yes moist mucous membranes Eyes: General: appearance normal, both eyes and all related structures Other: left-sided visual field defect and neglect Neck: Neck: supple and no JVD Resp: Effort & Inspection: normal respiratory effort Auscultation: clear to auscultation bilaterally Cardio: Rate: regular rate Rhythm: regular rhythm GI: GI Palp: Yes Soft to palpation Auscultation: normal bowel sounds Skin: General skin exam: normal color and no rashes or lesions noted Neuro: Other: patient remains awake and alert well oriented follows commands fairly well left-sided visual field defect and the neglect are stable in fact neglect is getting better left-sided hemiparesis had shown some improvement Extrem: General: normal to inspection Psych: Mental Status: mental status grossly normal Objective Data Vital Signs Vital Signs: Vital Signs - 24 hr 10/08/19 14:00 10/08/19 17:19 10/08/19 22:00 Temperature 36.2 C L 36.3 C L Pulse Rate 64 64 90 Respiratory Rate 16 18 Blood Pressure 123/53 L 130/60 Pulse Oximetry 100 98 10/09/19 05:59 10/09/19 08:26 Temperature 36.6 C Pulse Rate 78 78 Respiratory Rate 20 Blood Pressure 136/62 Pulse Oximetry 97 Intake/Output Intake/Output: Intake & Output 10/06/19 10/07/19 10/08/19 10/09/19 23:59 23:59 23:59 23:59 Intake Total 700 480 840 600 Balance 700 480 840 600 Meds/Results Medications: Active Medications Generic Name Dose Route Start Last Admin Trade Name Freq PRN Reason Stop Dose Admin Acetaminophen 650 mg 09/24/19 04:08 10/08/19 05:34 Tylenol Tablet PO 650 mg Q6H PRN Administration Pain (Scale Score 1-3) Amlodipine Besylate 2.5 mg 09/24/19 09:00 10/09/19 08:25 Norvasc PO 2.5 mg DAILY DAO Administration Aspirin 81 mg 09/24/19 09:00 10/09/19 08:24 Aspirin Ec PO 81 mg DAILY DAO Administration Atorvastatin Calcium 40 mg 09/24/19 21:00 10/08/19 20:20 Lipitor PO 40 mg HS DAO Administration Clopidogrel Bisulfate 75 mg 09/24/19 09:00 10/09/19 08:25 Plavix PO 75 mg DAILY DAO Administration Enoxaparin Sodium 40 mg 09/24/19 09:00 10/09/19 08:25 Lovenox SUB-Q 40 mg DAILY DAO Administration Famotidine 20 mg 09/24/19 09:00 10/09/19 08:25 Pepcid PO 20 mg DAILY DAO Administration Hydrocortisone 1 applic 09/24/19 09:00 10/08/19 17:19 Proctocream-Hc 2.5% TOPICAL 1 applic BID DAO Administration Losartan Potassium 100 mg 09/24/19 09:00 10/09/19 08:25 Cozaar PO 100 mg DAILY DAO Administration Meclizine HCl 25 mg 09/24/19 04:08 10/04/19 09:50 Antivert PO 25 mg TID PRN Administration Dizziness Or Vertigo Melatonin 3 mg 09/29/19 08:50 10/08/19 20:21 Melatonin PO 3 mg HS DAO Administration Melatonin 5 mg 09/29/19 21:00 10/08/19 20:21 Melatonin PO 5 mg HS DAO Administration Metoprolol Tartrate 25 mg 09/24/19 09:00 10/09/19 08:26 Lopressor PO 25 mg BID DAO Administratio
[2019-10-08 14:00] VITALS: BP 123/53; PULSE 64; RESP 16; TEMP 36.2; O2SAT 100
[2019-10-08 17:19] VITALS: PULSE 64
[2019-10-08] MEDS: ATORVASTATIN 40 MG TABLET PO (20:20)
[2019-10-08] MEDS: MELATONIN 5 MG TABLET PO (20:21)
[2019-10-08] MEDS: MELATONIN 3 MG TABLET PO (20:21)
[2019-10-08 22:00] VITALS: BP 130/60; PULSE 90; RESP 18; TEMP 36.3; O2SAT 98
[2019-10-09 05:59] VITALS: BP 136/62; PULSE 78; RESP 20; TEMP 36.6; O2SAT 97
[2019-10-09] MEDS: ASPIRIN 81 MG ENTERIC TABLET PO (08:24)
[2019-10-09] MEDS: CLOPIDOGREL BISULFATE 75 MG TABLET PO (08:25)
[2019-10-09] MEDS: LOSARTAN POTASSIUM 100 MG TABLET PO (08:25)
[2019-10-09] MEDS: AMLODIPINE BESYLATE 2.5 MG TABLET PO (08:25)
[2019-10-09] MEDS: ENOXAPARIN 40 MG/0.4 ML SYRINGE SUB-Q (08:25)
[2019-10-09] MEDS: FAMOTIDINE 20 MG TABLET PO (08:25)
[2019-10-09 08:26] VITALS: PULSE 78
[2019-10-09] MEDS: METOPROLOL TARTRATE 25 MG TABLET PO (08:26)
--- NOTE | 2019-10-14 10:36 | PM.DS ---
DS: Admitting Diagnosis Admitting Diagnosis Admitting Diagnosis: Other cerebral infarction due to occlusion or stenosis of small artery DS: Discharge Diagnosis Discharge Diagnosis (1) Hypertension: Code(s): I10 - Essential (primary) hypertension Status: Acute (2) Chronic kidney disease, stage 3: Code(s): N18.3 - Chronic kidney disease, stage 3 (moderate) Status: Acute (3) Left hemiparesis: Code(s): G81.94 - Hemiplegia, unspecified affecting left nondominant side Status: Acute (4) Right-sided lacunar stroke: Code(s): I63.81 - Other cerebral infarction due to occlusion or stenosis of small artery Status: Acute DS: Summary Hospital Course Reason for hospitalization: the patient was admitted a due to the right-sided stroke as mentioned in the above problems and also mentioned in detail in my initial history and physical examination which had left her with the moderately severe left-sided hemiparesis she did improve during the course of hospitalization after receiving the PT OT and speech Hospital Course: after receiving extensive physical therapy him regimen along with management of her medical issues the patient was able to achieve the following independence measures eating independent oral hygiene independent toileting independent bathing partial assistance upper body dressing supervision lower body dressings partial assistance foot where independent rolling in bed independent sitting to lying independent lying to sitting independent sit to stand supervision chair transfers supervision toilet transfers supervision car transfer supervision walking 10 feet supervision walking 50 feet with 2 turns supervision walking 150 feet supervision walking 10 feet uneven surfaces supervision car were steps supervision 4 step supervision 12 steps patient was unable to picking up objects supervision wheelchair 50 feet independent walking or wheelchair 100 feet independent the patient was discharged to [facility]dc facility because of the many reasons as they can be found in the [facility] licensed master social worker note and also the family's structure Status at Discharge Cognitive/behavioral status at discharge: stable Time Spent with Patient Time attestation: Total time spent providing and/or coordinating discharge services: Exam Const: General: comfortable and no acute distress HENMT: General nose exam: Normal nares present Mouth: Yes moist mucous membranes Eyes: General: appearance normal, both eyes and all related structures EOM: EOMs intact bilaterally Neck: Neck: supple and no JVD Resp: Effort & Inspection: normal respiratory effort Auscultation: clear to auscultation bilaterally Cardio: Rate: regular rate Rhythm: regular rhythm GI: GI Palp: Yes Soft to palpation Auscultation: normal bowel sounds Skin: General skin exam: normal color and no rashes or lesions noted Neuro: Other: patient was awake and alert and oriented following all commands the hemiparesis had improved but not to a degree were the family will be comfortable taking care of her at home Extrem: General: normal to inspection Psych: Mental Status: mental status grossly normal Discharge Plan Discharge Attending physician on discharge: Edward Fox Discharging Clinician: Edward Fox Anticipated Discharge Date/Time: 10/09/19 10:44 Patient Disposition: NH Residential/Asst Living Activity: as tolerated Diet: heart healthy and other - see discharge instructions Discharge Instructions: Cardiac Heart Healthy Diet with Level 6- Soft Bite Sized Patient Instructions: Antibiotic Form, Pain Management in Older Adults (DC), Heart Healthy Diet (ED), Ischemic Stroke (DC) Stand Alone Forms: General Discharge Information Follow-up/Referrals: Dr Morris Metzger [Other] (Follow up appointment 11/18/2019 at 9:00 AM) Discharge Medications: Continued amlodipine 2.5 mg tablet 2.5 mg PO DAILY RF: 0 clopidogrel 75 mg ta
== END 2019-10-09 11:20 | DRG 57 ==
PROVIDERS: Admitting Provider Psychiatry & Neurology Neurology; PCP Family Medicine; Visit Provider Psychiatry & Neurology Neurology
DX: I69.354 Hemiplegia and hemiparesis following cerebral infarction affecting left non-dominant side (principal); I69.398 Other sequelae of cerebral infarction; H54.7 Unspecified visual loss; G47.00 Insomnia, unspecified; E78.5 Hyperlipidemia, unspecified; I12.9 Hypertensive chronic kidney disease with stage 1 through stage 4 chronic kidney disease, or unspecified chronic kidney disease; N18.3 Chronic kidney disease, stage 3 (moderate); Z79.02 Long term (current) use of antithrombotics/antiplatelets; Z79.82 Long term (current) use of aspirin
CPT/HCPCS: 36415; 80048; 85025; 96125; 97110; 97116; 97162; 97166; 97530; 97535; 97542; A9270; J1650